=== PATIENT | female | born 1975 | race Caucasian/White ===

== ENCOUNTER 2017-05-24 14:26 | Emergency (ER) | payer OTHER ==
[2017-05-24 14:38] VITALS: BP 122/86
--- NOTE | 2017-05-24 14:48 | UC ---
Throat Pain/Nasal Albert HPI - HPI Summary HPI Summary: 41 yo female with sore throat and swollen glands x 4-5 days no fever left otalgia no n/v/d - History of Current Complaint Chief Complaint: UCRespiratory Stated Complaint: SORE THROAT Time Seen by Provider: 05/24/17 14:41 Hx Obtained From: Patient Hx Last Menstrual Period: 05/17/17 Onset/Duration: Sudden Onset, Lasting Days Severity: Mild Pain Intensity: 4 Pain Scale Used: 0-10 Numeric Cough: None - Epiglottits Risk Factors Epiglottis Risk Factors: Negative - Allergies/Home Medications Allergies/Adverse Reactions: Allergies Allergy/AdvReac Type Severity Reaction Status Date / Time No Known Allergies Allergy Verified 05/24/17 14:38 PMH/Surg Hx/FS Hx/Imm Hx Previously Healthy: Yes Endocrine History: Hypothyroidism - Surgical History Surgical History: Yes Surgery Procedure, Year, and Place: Ectopic 2010; d and c - Family History Known Family History: Positive: Cardiac Disease, Hypertension, Diabetes - Social History Alcohol Use: None Substance Use Type: None Smoking Status (MU): Never Smoked Tobacco Review of Systems Constitutional: Negative Skin: Negative Eyes: Negative ENT: Sore Throat, Ear Ache Respiratory: Negative Cardiovascular: Negative Gastrointestinal: Negative Genitourinary: Negative Motor: Negative Neurovascular: Negative Musculoskeletal: Negative Neurological: Negative Psychological: Negative All Other Systems Reviewed And Are Negative: Yes Physical Exam Triage Information Reviewed: Yes Appearance: Well-Appearing, No Pain Distress, Well-Nourished Vital Signs: Initial Vital Signs Temp 97.5 F 05/24/17 14:33 Pulse 67 05/24/17 14:33 Resp 16 05/24/17 14:33 BP 122/86 05/24/17 14:33 Pulse Ox 99 05/24/17 14:33 Eyes: Positive: Conjunctiva Clear ENT: Positive: Hearing grossly normal, Pharyngeal erythema, TMs normal, Tonsillar swelling. Negative: Nasal congestion, Nasal drainage, Trismus, Muffled/hoarse voice Neck: Positive: Supple, Nontender, Enlarged Nodes @ - ant cervical Respiratory: Positive: Lungs clear, Normal breath sounds, No respiratory distress, No accessory muscle use Cardiovascular: Positive: RRR, No Murmur Musculoskeletal: Positive: ROM Intact, No Edema Neurological: Positive: Alert Psychological Exam: Normal Skin Exam: Normal Throat Pain/Nasal Course/Dx - Course Course Of Treatment: RS (-) - Differential Dx/Diagnosis Provider Diagnoses: acute tonsillitis Discharge - Discharge Plan Condition: Stable Disposition: HOME Prescriptions: Cephalexin CAP* [Keflex CAP*] 500 mg PO BID #20 cap Prednisone 60 mg PO DAILY #9 tab Patient Education Materials: Tonsillitis (ED) Referrals: Linda Ojeda MD [Primary Care Provider] - Additional Instructions: recheck in 2-3 days if not better
== END 2017-05-24 15:05 | disposition home or self-care (01) ==
LOC: UCCORT 14:26
DX: J03.90 Acute tonsillitis, unspecified (principal); E03.9 Hypothyroidism, unspecified
CPT/HCPCS: 87651; 99212; G0463

== ENCOUNTER 2017-06-01 12:45 | Emergency (ER) | payer OTHER ==
[2017-06-01 13:00] VITALS: BP 114/83
--- NOTE | 2017-06-01 13:08 | UC ---
Throat Pain/Nasal Albert HPI - HPI Summary HPI Summary: 41 year old female presents for a follow up of sore throat. - History of Current Complaint Chief Complaint: UCEar Stated Complaint: RIGHT EAR/GLAND PAIN Time Seen by Provider: 06/01/17 13:02 Hx Last Menstrual Period: 05/18/17 - Allergies/Home Medications Allergies/Adverse Reactions: Allergies Allergy/AdvReac Type Severity Reaction Status Date / Time No Known Allergies Allergy Verified 06/01/17 13:00 PMH/Surg Hx/FS Hx/Imm Hx - Surgical History Surgical History: Yes Surgery Procedure, Year, and Place: Ectopic 2010; d and c - Family History Known Family History: Positive: Cardiac Disease, Hypertension, Diabetes - Social History Alcohol Use: None Substance Use Type: None Smoking Status (MU): Never Smoked Tobacco Review of Systems Constitutional: Negative Skin: Negative Eyes: Negative ENT: Sore Throat, Ear Ache, Nasal Discharge, Sinus Congestion, Sinus Pain/ Tenderness Respiratory: Negative Cardiovascular: Negative Gastrointestinal: Negative Genitourinary: Negative Motor: Negative Neurovascular: Negative Musculoskeletal: Negative Neurological: Negative Psychological: Negative All Other Systems Reviewed And Are Negative: Yes Physical Exam Triage Information Reviewed: Yes Vital Signs: Initial Vital Signs Temp 36.9 C 06/01/17 12:54 Pulse 54 06/01/17 12:54 Resp 14 06/01/17 12:54 BP 114/83 06/01/17 12:54 Pulse Ox 98 06/01/17 12:54 Eye Exam: Normal ENT: Positive: Pharyngeal erythema, Nasal congestion, Nasal drainage Dental Exam: Normal Neck exam: Normal Neck: Positive: 1 Respiratory Exam: Normal Cardiovascular Exam: Normal Abdominal Exam: Normal Musculoskeletal Exam: Normal Neurological Exam: Normal Psychological Exam: Normal Skin Exam: Normal Throat Pain/Nasal Course/Dx - Differential Dx/Diagnosis Provider Diagnoses: eustacian tube dysfunction Discharge - Discharge Plan Condition: Stable Disposition: HOME Prescriptions: Fluticasone NASAL SPRAY 50MCG* [Flonase NASAL SPRAY 50MCG*] 2 spray BOTH NARES DAILY #1 btl Levofloxacin TAB* [Levaquin TAB*] 500 mg PO DAILY #14 tab Neomyc/Polym/HC 1% OTIC SUSP* [Cortisporin Otic Susp 1%*] 4 drop LEFT EAR TID # 1 btl Patient Education Materials: Sinusitis (ED) Referrals: Kristi Dorantes MD [Primary Care Provider] - If Needed
--- NOTE | 2017-06-04 06:56 | ED ---
Progress - Progress Note Progress Note: THROAT CX (-), follow up with DR BRINK SCHEDULED. Course/Dx - Diagnoses Provider Diagnoses: Pharyngitis
== END 2017-06-01 13:32 | disposition home or self-care (01) ==
LOC: UCCORT 12:45
DX: H69.90 Unspecified Eustachian tube disorder, unspecified ear (principal)
CPT/HCPCS: 87070; 99212; G0463

== ENCOUNTER 2018-02-17 07:05 | Emergency (ER) | payer OTHER ==
[2018-02-17 07:37] VITALS: BP 119/80
--- NOTE | 2018-02-17 07:47 | UC ---
Respiratory Complaint HPI - HPI Summary HPI Summary: C/O congestion, sore throat, slight cough. Chest discomfor this morning. More tired, dizziness. - History of Current Complaint Chief Complaint: UCRespiratory Stated Complaint: RESPIRATORY Time Seen by Provider: 02/17/18 07:40 Hx Last Menstrual Period: 02/07/18 ?: No Onset/Duration: Sudden Onset, Lasting Days - 3, Worse Since Severity Initially: Mild Severity Currently: Moderate Pain Intensity: 6 Character: Cough: Nonproductive Associated Signs And Symptoms: Positive: Dyspnea, Pleuritic Chest Pain, Dizziness, URI, Nasal Congestion, Hoarseness. Negative: Fever, Sinus Discomfort - Allergies/Home Medications Allergies/Adverse Reactions: Allergies Allergy/AdvReac Type Severity Reaction Status Date / Time No Known Allergies Allergy Verified 02/17/18 07:20 Home Medications: Home Medications Dm/Acetaminophen/Doxylamine [Night Time Multi-Symptom] 1 cap PO PRN 02/17/18 [ History] PMH/Surg Hx/FS Hx/Imm Hx Endocrine History: Hypothyroidism - Surgical History Surgical History: Yes Surgery Procedure, Year, and Place: Ectopic 2010; d and c - Family History Known Family History: Positive: Cardiac Disease, Hypertension, Diabetes - Social History Occupation: Employed Full-time Lives: With Family Alcohol Use: None Substance Use Type: None Smoking Status (MU): Never Smoked Tobacco Have You Smoked in the Last Year: No Review of Systems ENT: Sore Throat, Nasal Discharge Respiratory: Cough Cardiovascular: Chest Pain Is Patient Immunocompromised?: No All Other Systems Reviewed And Are Negative: Yes Physical Exam Triage Information Reviewed: Yes Appearance: No Pain Distress, Well-Nourished, Ill-Appearing Vital Signs: Initial Vital Signs Temp 98.7 F 02/17/18 07:25 Pulse 76 02/17/18 07:25 Resp 16 02/17/18 07:25 BP 119/80 02/17/18 07:25 Pulse Ox 99 02/17/18 07:25 Vital Signs Reviewed: Yes Eyes: Positive: Conjunctiva Clear ENT: Positive: Pharynx normal, Nasal congestion, TMs normal - on the right. Left obscurred by wax., Tonsillar swelling - bilateral with some erythema and right tonsilith, Hoarse voice Neck exam: Normal Respiratory Exam: Normal Cardiovascular Exam: Normal Musculoskeletal Exam: Normal Neurological Exam: Normal Psychological Exam: Normal Skin Exam: Normal UC Diagnostic Evaluation - Laboratory O2 Sat by Pulse Oximetry: 99 Respiratory Course/Dx - Differential Dx/Diagnosis Differential Diagnosis/HQI/PQRI: Bronchitis, Lower Resp Infection, Sinusitis Provider Diagnoses: Acute viral URI. Cerumen impaction left ear Discharge - Sign-Out/Discharge Documenting (check all that apply): Discharge - Discharge Plan Condition: Stable Disposition: HOME Patient Education Materials: Upper Respiratory Infection (ED), Cold Symptoms ( ED), Cerumen Impaction (ED) Referrals: Dariana Monaco MD [Primary Care Provider] - Additional Instructions: Do not put Q-tips in the ears. - Billing Disposition and Condition Condition: STABLE Disposition: HOME
== END 2018-02-17 08:48 | disposition home or self-care (01) ==
LOC: UCCORT 07:05
DX: J06.9 Acute upper respiratory infection, unspecified (principal); H61.22 Impacted cerumen, left ear
CPT/HCPCS: 87651; 99211; G0463

== ENCOUNTER 2018-08-09 12:48 | Emergency (ER) | payer OTHER ==
[2018-08-09 13:15] VITALS: BP 137/93
--- NOTE | 2018-08-09 13:28 | UC ---
Abdominal Pain Female HPI - HPI Summary HPI Summary: Pt presents with 10 day of epigatric fullness and nausea. +burning pain. Pt without back pain. No cp, sob. no diarrhea. + belching. Pt with a h/o gastritis. Pt has tried Mylanta x 2 with mild improvement. No fever, chills, rash. No alonzo, vision changes. Pt has an appt with GI next week. Pt states has pantoprazole - takes daily. Pt states sometimes misses. Pt without sick contact , recent travel or antibiotic. Pt states had meatball with red sauce last night and pain seemed worse. Little po today. Pt does also report mild paresthesia along left upper ext, medial aspect. does not connect to chest or back. sx worse with ROM of neck no weakness. RHD Pt's medications reviewed this visit no concern for - History of Current Complaint Chief Complaint: UCAbdominalPain Stated Complaint: ABDOMINAL PAIN, LEFT ARM NUMBNESS Time Seen by Provider: 08/09/18 13:11 Hx Obtained From: Patient Hx Last Menstrual Period: yesterday Pain Intensity: 5 Allergies/Adverse Reactions: Allergies Allergy/AdvReac Type Severity Reaction Status Date / Time No Known Allergies Allergy Verified 02/17/18 07:20 Home Medications: Home Medications Pantoprazole Sodium 40 mg PO DAILY 08/09/18 [History Confirmed 08/09/18] PMH/Surg Hx/FS Hx/Imm Hx Previously Healthy: Yes Other GI/ History: gastritis Other Neurological History: paresthesia left arm - Surgical History Surgical History: Yes Surgery Procedure, Year, and Place: Ectopic 2010; d and c - Family History Known Family History: Positive: Cardiac Disease, Hypertension, Diabetes - Social History Lives: With Family Alcohol Use: None Substance Use Type: None Smoking Status (MU): Never Smoked Tobacco Have You Smoked in the Last Year: No Review of Systems Constitutional: Negative Gastrointestinal: Nausea, Other - eigastric pain Neurovascular: Other - paresthesia LUE All Other Systems Reviewed And Are Negative: Yes Physical Exam - Summary Physical Exam Summary: Vital Signs Reviewed: Yes A+Ox3, no distress Eyes: Conjunctiva Clear, EVAN. EOM intact and full ENT: Hearing grossly normal TM x 2 clear, mmoist, uvula midline, no exudate, no erythema Neck: Positive: Supple Full AROM c spine Respiratory: Positive: No respiratory distress, No accessory muscle use + CTA throughout no w/r Cardiovascular: RRR nl s1, s2 no m/r CBT <2 sec abd soft + BS mild epigastric discomfort with deep palp. No CVA pain, no guarding, no distension Musculoskeletal Exam: JOHNSTON x 4 without difficulty Strength Intact, ROM Intact f5/ 5 abduction left shoulder 5/5 flex/ext elbow, wrist Neurological: Positive: Alert, + sensation throughout gorssly intact b/l equal , 2+ achilles, full strength Psychological: Positive: Normal Response To Family Skin: Positive: no rash, no ecchymosis Triage Information Reviewed: Yes Vital Signs: Initial Vital Signs Temp 98.2 F 08/09/18 12:50 Pulse 70 08/09/18 12:50 Resp 18 08/09/18 12:50 BP 137/93 08/09/18 12:50 Pulse Ox 99 08/09/18 12:50 Diagnostics - EKG EKG Comments: 08/09/18 13:[address], T wave changes [facility] 08/09/2018 Cardiac Rate: NL Re-Evaluation - Re-Evaluation First Eval Comment: pain completely resolved following GI cocktail. recommend increase pantoprazole BID. Maalox prn. small, frequent meals. bland. f/u with GI this week. return to eD with any change. pt comfortable and in agreemen twth plan Abd Pain Female Course/Dx - Course Course Of Treatment: Pt with epigastric discomfort x 1 week + belching. little relief with Mylanta, worse with tomato sauce. h/o gastritis. pt also with left upper ext paresthesia -0 no weakness. VSS. on exam, epigastric discomfort. compete neuroexam with patchy reports of paresthesia -s x worse with lateral rotation ofhead. EKG normal without acute changes. iwll give gi cocktail and reasses. pt comfortable and tarsha greement with plan - Differential Dx/Diagnosis Provider Diagnoses: epgastric pain. gastritis. paresthesia Discharge - Sign-Out/Discharge Documenting (check all that apply): Patient Departure All imaging exams completed and their final reports reviewed: No Studies - Discharge Plan Condition: Stable Disposition: HOME Patient Education Materials: Gastritis (ED) Referrals: Dariana Monaco MD [Primary Care Provider] - Additional Instructions: - Increase your pantoprazole 20mg to twice a day dosing - Eat small, frequent meals (every 2-3 days) - It is recommended that you eat and drink small, frequent foods. It is recommended you eat and drink bland foods (dry toast, crackers, scrambled eggs) Avoid spicy foods and acidic foods ( tomato based foods, citric food, spicy food, acidic foods). Avoid carbonated beverages - If you are having discomfort - okay to take Maalox (you were given here) or Mylanta - Do not eat for at least 1 hour before lying down - Use 2 pillows in bed - Keep your appointment with your GI doctor this week. If you pain increases, lightheadedness, vomiting, chest pain, shortness of breath, or any other concerns it is recommended you go to the emergency department for further evaluation - Billing Disposition and Condition Condition: STABLE Disposition: Home
[2018-08-09] MEDS ORDERED: Lidocaine 2% VISCOUS* 15 ML UDC PO ONE (13:39)
[2018-08-09] MEDS ORDERED: Al Hydrox/Mg Hydrox/Simet LIQ* 30 ML UDC PO ONE (13:40)
== END 2018-08-09 14:45 | disposition home or self-care (01) ==
LOC: UCCORT 12:48
DX: K29.70 Gastritis, unspecified, without bleeding (principal); R10.13 Epigastric pain; R20.2 Paresthesia of skin
CPT/HCPCS: 81003; 84702; 87086; 93005; 99212; A9270-GY; G0463

== ENCOUNTER 2018-09-02 09:07 | Emergency (ER) | payer MEDICAID, OTHER ==
[2018-09-02 09:37] VITALS: BP 116/82
--- NOTE | 2018-09-02 09:50 | ED ---
Skin Complaint - HPI Summary HPI Summary: 42 yr old female with complaint of redness, itching and circular rash right lower anterior chest, not involving breast area at all, but below this area and onto the RUQ boarder of abdomen. She doesn't remember any insect or tick bites. She has been itching the area for the past few days, had fever 101 on day, and continues to have increased circular patch of redness. She has no other complaints. She is concerned about antibiotics that might upset her stomach. - History of Current Complaint Chief Complaint: UCSkin Time Seen by Provider: 09/02/18 09:38 Stated Complaint: SKIN CONCERN,STOMACH ACHE,FEVER Hx Last Menstrual Period: 09/01/18 Pain Intensity: 0 - Allergy/Home Medications Allergies/Adverse Reactions: Allergies Allergy/AdvReac Type Severity Reaction Status Date / Time No Known Allergies Allergy Verified 09/02/18 09:37 PMH/Surg Hx/FS Hx/Imm Hx Endocrine/Hematology History: Reports: Hx Thyroid Disease - hypo GI History: Reports: Hx Ulcer - H-PYLORI - Surgical History Surgery Procedure, Year, and Place: Ectopic 2010; d and c Infectious Disease History: No Infectious Disease History: Denies: Traveled Outside the [place] in Last 30 Days - Family History Known Family History: Positive: Cardiac Disease, Hypertension, Diabetes - Social History Alcohol Use: None Substance Use Type: Reports: None Smoking Status (MU): Never Smoked Tobacco Have You Smoked in the Last Year: No Review of Systems Positive: Fever Positive: Rash All Other Systems Reviewed And Are Negative: Yes Physical Exam Triage Information Reviewed: Yes Vital Signs On Initial Exam: Initial Vitals Temp Pulse Resp BP Pulse Ox 97.7 F 107 16 116/82 100 09/02/18 09:30 09/02/18 09:30 09/02/18 09:30 09/02/18 09:30 09/02/18 09:30 Vital Signs Reviewed: Yes Appearance: Positive: Well-Appearing, No Pain Distress Skin: Positive: Other - There is a 3-4 inch diameter red patch. Not a bulls eye type rash. There appears to be a bite kath in the center. Not able to tell what this insect bite is from. Location is lower right chest, and not on the breast area at all. It's lower boarder is the RUQ abdomen, costal margin. ENT: Positive: Normal ENT inspection Neck: Positive: Nontender Respiratory/Lung Sounds: Positive: Clear to Auscultation, Breath Sounds Present Cardiovascular: Positive: RRR. Negative: Murmur Abdomen Description: Negative: Distended Musculoskeletal: Positive: Strength/ROM Intact Neurological: Positive: Sensory/Motor Intact, Alert, Oriented to Person Place, Time, CN Intact II-III Psychiatric: Positive: Normal - Prosepr Coma Scale Best Eye Response: 4 - Spontaneous Best Motor Response: 6 - Obeys Commands Best Verbal Response: 5 - Oriented Coma Scale Total: 15 Diagnostics - Vital Signs Vital Signs Temp Pulse Resp BP Pulse Ox 09/02/18 09:30 97.7 F 107 16 116/82 100 - Laboratory Lab Statement: Any lab studies that have been ordered have been reviewed, and results considered in the medical decision making process. Course/Dx - Course Course Of Treatment: 42 yr old with cellulitis right lower chest wall. Will Rx wtih Ceftin 500 BID 14 days. - Diagnoses Provider Diagnoses: Bug bite, Cellulitis Discharge - Sign-Out/Discharge Documenting (check all that apply): Patient Departure All imaging exams completed and their final reports reviewed: No Studies - Discharge Plan Condition: Good Disposition: HOME Prescriptions: Cefuroxime 500 MG(NF) 500 mg PO BID #28 tab Patient Education Materials: Insect Bite or Sting (ED), Cellulitis (ED) Referrals: Dariana Monaco MD [Primary Care Provider] - 1 Day - Billing Disposition and Condition Condition: GOOD Disposition: Home
[2018-09-02] MEDS ORDERED: ceFUROXime TAB(*) 250 MG PO ONE (09:55)
== END 2018-09-02 10:10 | disposition home or self-care (01) ==
LOC: UCCORT 09:07
DX: S20.361A Insect bite (nonvenomous) of right front wall of thorax, initial encounter (principal); L03.313 Cellulitis of chest wall; E03.9 Hypothyroidism, unspecified; W57.XXXA Bitten or stung by nonvenomous insect and other nonvenomous arthropods, initial encounter; Y92.9 Unspecified place or not applicable
CPT/HCPCS: 99212; G0463

== ENCOUNTER 2018-09-16 15:52 | Emergency (ER) | payer MEDICAID, OTHER ==
[2018-09-16 16:21] VITALS: BP 127/82
--- NOTE | 2018-09-16 17:07 | UC ---
Skin Complaint HPI - HPI Summary HPI Summary: 42 year old female presents with tender, erythematous area to her right chest wall. She was initially seen in this facility on 09/02/2018 and diagnosed with cellulitis. Started on cefuroxime however only took 3 doses and stopped d/t concerns of GI upset. States symptoms seemed to improve but over past several days redness and erythema returned and has progressively worsened. States she had fever at onset of symptoms however has been afebrile since that time. - History of Current Complaint Chief Complaint: UCSkin Time Seen by Provider: 09/16/18 16:24 Stated Complaint: RE CHECK SKIN CONCERN Hx Obtained From: Patient Hx Last Menstrual Period: 09/01/18 Onset/Duration: Gradual Onset, Lasting Days Onset Severity: Mild Current Severity: Moderate Pain Intensity: 5 Location: Other - See HPI Character: Redness, Painful Aggravating Factor(s): Touch Alleviating Factor(s): Nothing Associated Signs & Symptoms: Positive: Tenderness. Negative: Nausea, Vomiting, Difficulty Breathing, Fever, Chills, Chest Pain, Abdominal Pain, Drainage - Allergy/Home Medications Allergies/Adverse Reactions: Allergies Allergy/AdvReac Type Severity Reaction Status Date / Time No Known Allergies Allergy Verified 09/16/18 16:22 Review of Systems Constitutional: Negative Skin: Other - See HPI Respiratory: Negative Cardiovascular: Negative Gastrointestinal: Negative Is Patient Immunocompromised?: No All Other Systems Reviewed And Are Negative: Yes PMH/Surg Hx/FS Hx/Imm Hx Previously Healthy: Yes Endocrine History: Hypothyroidism GI/ History: Gastroesophageal Reflux - Surgical History Surgical History: Yes Surgery Procedure, Year, and Place: Ectopic 2010; d and c - Family History Known Family History: Positive: Cardiac Disease, Hypertension, Diabetes - Social History Occupation: Employed Full-time Lives: With Family Alcohol Use: None Substance Use Type: None Smoking Status (MU): Never Smoked Tobacco Have You Smoked in the Last Year: No Physical Exam Triage Information Reviewed: Yes Appearance: Well-Appearing, No Pain Distress, Well-Nourished Vital Signs: Initial Vital Signs Temp 98.6 F 09/16/18 16:11 Pulse 88 09/16/18 16:11 Resp 16 09/16/18 16:11 BP 127/82 09/16/18 16:11 Pulse Ox 100 09/16/18 16:11 Vital Signs Reviewed: Yes Neck: Positive: Supple, Nontender, Enlarged Nodes @ - Single, enlarged, non- tender, mobile right axillary lymph node Respiratory: Positive: Lungs clear, Normal breath sounds, No respiratory distress Cardiovascular: Positive: RRR, No Murmur Abdomen Description: Positive: Nontender, No Organomegaly, Soft. Negative: Distended, Guarding Neurological: Positive: Alert Skin Exam: Other - large area of erythema, tenderness, and increased warmth to right chest wall extending from costral margin anterior chest to mid axillary line and upwards to approximately 4 inches below the axilla. No open lesions or drainage noted. Course/Dx - Course Course Of Treatment: 42 year old female presents with tender, erythematous area to her right chest wall. She was initially seen in this facility on 09/02/2018 and diagnosed with cellulitis. Started on cefuroxime however only took 3 doses and stopped d/t concerns of GI upset. States symptoms seemed to improve but over past several days redness and erythema returned and has progressively worsened. Exam is consistent with a cellulitis of the right chest wall. She has a single enlarged, nontender, mobile right axillary lymph node. Afebrile. Will have patient continue with the cefuroxime since she restarted this today on her own. She is very concerned about the antibiotics causing GI upset so I have provided her with a prescription for ondansetron PRN nausea and instructed her to start with a 5 day course of the antibiotic. She is to follow up with her PCP in 5 days as I am concerned that this may need to be extended. Warning symptoms were discussed with patient. Verbalizes understanding and agrees with POC. - Diagnoses Provider Diagnoses: Cellulitis right chest wall Discharge - Sign-Out/Discharge Documenting (check all that apply): Patient Departure All imaging exams completed and their final reports reviewed: No Studies - Discharge Plan Condition: Stable Disposition: HOME Prescriptions: Ondansetron ODT TAB* [Zofran 4 MG Odt TAB*] 4 mg PO Q8H PRN #9 tab.odt PRN Reason: Nausea Patient Education Materials: Cellulitis (ED) Referrals: Dariana Monaco MD [Primary Care Provider] - 5 Days (For recheck of cellulitis. Call tomorrow for appointment.) Additional Instructions: Your symptoms appear to be a reoccurrence of the cellulitis you had previously. I suspect that this is because you did not complete the previous course of antibiotic as prescribed. Restart the cefuroxime 1 tablet twice a day for 5 days. Take with food to help prevent upset stomach. It is very important that you take the full 5 days even if your symptoms improve. You may use ondansetron (Zofran) 1 tablet every 8 hours as needed for nausea. Follow up with your primary care provider in 5 days for recheck of your cellulitis as you may need to continue the antibiotics for more than 5 days. Call tomorrow for an appointment. Seek immediate medical attention in the emergency room if you develop fever greater than 100.5 F, the redness continues to spread, or you have any worsening of symptoms. - Billing Disposition and Condition Condition: STABLE Disposition: Home - Attestation Statements Provider Attestation: Per institutional requirements, I have reviewed the chart, however, I was not consulted specifically or made aware of this patient by the midlevel provider. I did not personally evaluate, interact with , or disposition this patient.
== END 2018-09-16 17:22 | disposition home or self-care (01) ==
LOC: UCCORT 15:52
DX: L03.313 Cellulitis of chest wall (principal); E03.9 Hypothyroidism, unspecified; K21.9 Gastro-esophageal reflux disease without esophagitis; Z79.2 Long term (current) use of antibiotics
CPT/HCPCS: 99212; G0463

== ENCOUNTER 2018-11-13 09:27 | Emergency (ER) | payer OTHER ==
[2018-11-13 10:38] VITALS: BP 116/79
--- NOTE | 2018-11-13 10:51 | UC ---
UC General HPI - HPI Summary HPI Summary: Pt present to report epigastric and LUQ pain. Pt states pain has been present x1 month, progressive x 1 week. Pt states pain increased last night - called her GI specialist today - couldn't get appt until next Sunday so came to UC> Pt with h/o gastritis, GERD, and H pylori Pt states has not been consistently taking proton pump inhibitor. Pt state too this am and pain improved, but wanted to be checked. pt will mild nausea, no vomiting. no fever, chills. No diarrhea. no diarrhea. no blood, black BM. Pt denies chest pain. No shortness of breath. Pt also with back pain, left mid back. states concerned "connected to my stomach" Pt states has chiropractor adjustments - states also concerned LUQ pain connected to back. Pt states "wants to get to the bottom of this" Pt also reports paresthesias to left lateral distal arm and wrist. No weakness. pt has had for several months. Has not discussed with PCP. Pain worse with movement. Pt has not take any other analgesia. No excess ETOH. Pt did not contact PCP Pt's medications reviewed this visit - History of Current Complaint Chief Complaint: UCGeneralIllness Stated Complaint: LEFT SIDE PAIN Time Seen by Provider: 11/13/18 10:49 Hx Obtained From: Patient, Medical Records Hx Last Menstrual Period: 09/01/18 Onset/Duration: Gradual Onset, Lasting Weeks Pain Intensity: 6 - Allergy/Home Medications Allergies/Adverse Reactions: Allergies Allergy/AdvReac Type Severity Reaction Status Date / Time No Known Allergies Allergy Verified 11/13/18 10:22 PMH/Surg Hx/FS Hx/Imm Hx Previously Healthy: Yes GI/ History: Gastroesophageal Reflux, Other - gastrtis, h pylori - Surgical History Surgical History: Yes Surgery Procedure, Year, and Place: Ectopic 2010; d and c - Family History Known Family History: Positive: Cardiac Disease, Hypertension, Diabetes, Non- Contributory - Social History Lives: With Family Alcohol Use: None Substance Use Type: None Smoking Status (MU): Never Smoked Tobacco Have You Smoked in the Last Year: No Review of Systems All Other Systems Reviewed And Are Negative: Yes Constitutional: Positive: Negative Skin: Positive: Negative Eyes: Positive: Negative ENT: Positive: Negative Respiratory: Positive: Negative Cardiovascular: Positive: Negative Gastrointestinal: Positive: Abdominal Pain Genitourinary: Positive: Negative Motor: Positive: Negative Neurovascular: Positive: Other - paresthesia LUE Musculoskeletal: Positive: Negative Psychological: Positive: Negative Physical Exam - Summary Physical Exam Summary: Vital Signs Reviewed: Yes A+Ox3, no apparent discomfort Eyes: Conjunctiva Clear, EVAN. EOM intact and full ENT: Hearing grossly normal TM x 2 clear, mmoist, uvula midline, no exudate, no erythema Neck: Positive: Supple Respiratory: Positive: No respiratory distress, No accessory muscle use + CTA throughout no w/r Cardiovascular: RRR nl s1, s2 no m/r CBT <2 sec abd soft mild epigastric pain with direct palp, + BS nt/nd no guarding, no distension no cva Musculoskeletal Exam: [place] x 4 without difficulty Strength Intact, ROM Intact + full abduct shoulder, flex/ext elbow, wrist 5/5 grasp 2+ bicep without clonus + thumb up, a ok, finger cross, finger pread Neurological: Positive: Alert, + sensation throughout Psychological: Positive: Normal Response To Family Skin: Positive: no rash, no ecchymosis Triage Information Reviewed: Yes Vital Signs: Initial Vital Signs Temp 97.9 F 11/13/18 10:23 Pulse 76 11/13/18 10:23 Resp 16 11/13/18 10:23 BP 116/79 11/13/18 10:23 Pulse Ox 100 11/13/18 10:23 Diagnostics - EKG Cardiac Rate: NL Cardiac Rhythm: Sinus: Normal Ectopy: PACs - one beat EKG Comparison: No Significant Change - 07/2018 EKG Course/Dx - Course Course Of Treatment: Pt presents with progressive epigastric pain and burning x 1 month. pt also states discomfort in midback - worse with movement. pt states took omeprazole this am with mild improvement. pt states "fed up" with pain so came to - unable to see pcp. On exam, pt with stable VSS. pt with mild discomfort epigastric area. d/w pt differential - likely gastritis, but could be pancreatitis, pleural effusion - recommend pt to ED for labs. No U/S available at today. pt in agreement with plan. spoke with Anirudh Tam NP in ED - aware pt by POV. reviewed UC previousl note= pt reported same sx and same paresthesia to LUE - Diagnoses Provider Diagnosis: Epigastric pain, Paresthesia of left upper extremity Discharge - Sign-Out/Discharge Documenting (check all that apply): Patient Departure All imaging exams completed and their final reports reviewed: No Studies - Discharge Plan Condition: Stable Disposition: HOME-RECOMMEND TO ED Patient Education Materials: Acute Abdominal Pain (ED), Paresthesia (ED) Referrals: Dariana Monaco MD [Primary Care Provider] - Additional Instructions: The doctor that evaluated you today thinks that you need additional testing that can be completed the emergency department. It is recommended that you go directly to emergency department for further evaluation. This evaluation may include blood work or imaging. This testing will be directed and decided by the provider that evaluate you at the emergency department. If pain becomes worse, you feel lightheaded, you have uncontrolled vomiting, or you have any other concerns while you are being driven to emergency department as recommended to pullover and contact 911. - Billing Disposition and Condition Condition: STABLE Disposition: Home-Recommend to ED
== END 2018-11-13 11:14 | disposition home health service (06) ==
LOC: UCCORT 09:27
DX: R10.13 Epigastric pain (principal); R10.12 Left upper quadrant pain; R20.2 Paresthesia of skin; R11.0 Nausea
CPT/HCPCS: 99212; G0463

== ENCOUNTER 2019-01-14 21:01 | Emergency (ER) | payer OTHER ==
[2019-01-14 21:39] VITALS: BP 138/90
[2019-01-14] MEDS ORDERED: Ketorolac INJ* 60 MG/2 ML VIAL IM ONE (21:51)
[2019-01-14] MEDS ORDERED: Ondansetron ODT TAB* 4 MG PO ONE (21:51)
--- NOTE | 2019-01-14 21:53 | UC ---
Headache HPI - HPI Summary HPI Summary: PT C/O A L SIDED HEADACHE SINCE LAST PM. NO RELIEF WITH TYLENOL. STATES "I GET THESE ALL THE TIME". STATES HER DOCTOR HAS CALLED THEM MIGRAINES IN THE PAST. TRIAGE NOTE SAID NO NAUSEA OR PHOTOPHOBIA; HOWEVER, PT REPORTS NAUSEA AND SENSITIVITY TO LIGHT. NO HX INJURY, FEVER OR VOMITING. NO AN ABRUPT OR WORST HEADACHE. NO VISUAL LOSS, GAIT OR SPEECH DISTURBANCES OR FOCAL NUMB/WEAKNESS. LAST CT WAS ABOUT 1 YEAR AGO AND WAS NORMAL. PT STATES SHE HAD A LOT OF STRESS YESTERDAY. - History Of Current Complaint Chief Complaint: UCHeadache Stated Complaint: HEADACHE Time Seen by Provider: 01/14/19 21:47 Hx Obtained From: Patient Hx Last Menstrual Period: 01/10/19 Pain Intensity: 8 Timing: Constant Aggravating Factor(s): Bright Lights - Allergies/Home Medications Allergies/Adverse Reactions: Allergies Allergy/AdvReac Type Severity Reaction Status Date / Time No Known Allergies Allergy Verified 01/14/19 21:35 Home Medications: Home Medications Acetaminophen [Tylenol Extra Strength] 1,000 mg PO Q6H PRN 01/14/19 [History Confirmed 01/14/19] PMH/Surg Hx/FS Hx/Imm Hx Endocrine History: Thyroid Disease Neurological History: Migraine - Surgical History Surgical History: Yes Surgery Procedure, Year, and Place: Ectopic 2010; d and c - Family History Known Family History: Positive: Cardiac Disease, Hypertension, Diabetes, Non- Contributory - Social History Alcohol Use: None Substance Use Type: None Smoking Status (MU): Never Smoked Tobacco Have You Smoked in the Last Year: No Review of Systems All Other Systems Reviewed And Are Negative: Yes Constitutional: Positive: Negative Skin: Positive: Negative Eyes: Positive: Photophobia. Negative: Blurred Vision, Diplopia ENT: Positive: Negative Respiratory: Positive: Negative Cardiovascular: Positive: Negative Gastrointestinal: Positive: Nausea. Negative: Abdominal Pain, Vomiting, Diarrhea Motor: Positive: Negative Neurovascular: Positive: Negative Musculoskeletal: Positive: Negative Neurological: Positive: Headache. Negative: Weakness, Paresthesia, Numbness Is Patient Immunocompromised?: No Physical Exam Triage Information Reviewed: Yes Appearance: Well-Appearing Vital Signs: Initial Vital Signs Temp 97.8 F 01/14/19 21:34 Pulse 73 01/14/19 21:34 Resp 16 01/14/19 21:34 BP 138/90 01/14/19 21:34 Pulse Ox 100 01/14/19 21:34 Vital Signs Reviewed: Yes Eyes: Positive: Conjunctiva Clear, Other: - perrl, eomi. ENT: Positive: Pharynx normal, TMs normal. Negative: Nasal congestion, Nasal drainage Neck: Positive: Supple, Nontender, No Lymphadenopathy. Negative: Nuchal Rigidity Respiratory: Positive: Lungs clear, Normal breath sounds, No respiratory distress Cardiovascular: Positive: RRR, No Murmur Abdomen Description: Positive: Nontender, No Organomegaly, Soft Bowel Sounds: Positive: Present Musculoskeletal: Positive: ROM Intact Neurological: Positive: Other: - A&O X3. CN 2-12 intact. 5/5 strength, 2+ reflexes and sensation intact x4. negative rhomberg and pronator drift. performs rapid alternating moves with ease. Steady gait. Psychological: Positive: Age Appropriate Behavior Skin Exam: Normal Re-Evaluation - Re-Evaluation First Eval Re-Evaluation Time: 10:10 Change: Unchanged - pt reports being comfortable with going home after tx. she has been advised to f/u with her pcp tomorrow and to inquire about migraine tx options Headache Course/Dx - Differential Dx/Diagnosis Differential Diagnosis/HQI/PQRI: Other - not an abrupt or worst headache and similar headaches in past thus no concern for subarachnoid bleed. also, no concern for infection or temporal arteritis. pt had a negative brain ct 1 year ago. her neuro exm is reassuring. Provider Diagnosis: Migraine Discharge - Sign-Out/Discharge Documenting (check all that apply): Patient Departure All imaging exams completed and their final reports reviewed: No Studies - Discharge Plan Condition: Stable Disposition: HOME Patient Education Materials: Migraine Headache (ED) Referrals: Dariana Monaco MD [Primary Care Provider] - 1 Day - Billing Disposition and Condition Condition: STABLE Disposition: Home - Attestation Statements Provider Attestation: Per institutional requirements, I have reviewed the chart, however, I was not consulted specifically or made aware of this patient by the midlevel provider. I did not personally evaluate, interact with , or disposition this patient.
== END 2019-01-14 22:20 | disposition home or self-care (01) ==
LOC: UCCORT 21:01
DX: G43.909 Migraine, unspecified, not intractable, without status migrainosus (principal)
CPT/HCPCS: 96372; 99212; A9270-GY; G0463; J1885